=== PATIENT | female | born 1970 | race Caucasian/White ===

== ENCOUNTER 2021-11-10 21:51 | Inpatient (IN) | payer MEDICARE, MEDICAID, SELFPAY ==
[2021-11-10 22:45] VITALS: BMI 27.8
[2021-11-10 22:52] VITALS: BP 102/58; PULSE 76; TEMP 36.5; O2SAT 96
[2021-11-11] MEDS: traZODone HCL 50 MG TABLET PO ×2 (02:41→20:04)
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
[2021-11-11 09:45] VITALS: BP 115/60; PULSE 74; RESP 16; TEMP 36.4; O2SAT 99
[2021-11-11] MEDS: Gabapentin 400 MG CAPSULE PO ×3 (09:55→20:06)
[2021-11-11] MEDS: Dextroamphetamine/Amphetamine XR 10 MG CAP.ER.24H 20 MG PO (09:55)
[2021-11-11] MEDS: clonazePAM 1 MG TABLET PO ×3 (09:55→20:04)
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
[2021-11-11] MEDS: Loperamide HCl 2 MG CAPSULE PO (19:36)
[2021-11-11 19:55] VITALS: BP 131/78; PULSE 84; RESP 18; TEMP 36.7; O2SAT 100
[2021-11-11] MEDS: hydrOXYzine HCL 25 MG TABLET PO (20:20)
[2021-11-12 06:00] VITALS: BP 118/71; PULSE 80; RESP 16; TEMP 36.9; O2SAT 97
[2021-11-12 07:00] VITALS: BMI 27.8
[2021-11-12] MEDS: Gabapentin 400 MG CAPSULE PO ×3 (10:33→20:12)
[2021-11-12] MEDS: clonazePAM 1 MG TABLET PO ×2 (10:34→20:12)
[2021-11-12] MEDS: buPROPion HCl XL 150 MG TAB.ER.24H PO (10:34)
[2021-11-12] MEDS: Escitalopram Oxalate 5 MG TABLET PO (10:34)
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
[2021-11-12 20:12] VITALS: BP 133/62; PULSE 118; RESP 20; TEMP 36.3; O2SAT 97
[2021-11-12] MEDS: hydrOXYzine HCL 25 MG TABLET PO (20:12)
[2021-11-12] MEDS: traZODone HCL 50 MG TABLET PO ×2 (20:12)
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
[2021-11-13 10:22] VITALS: BP 151/93; PULSE 78; RESP 18; TEMP 36.3; O2SAT 98
[2021-11-13] MEDS: clonazePAM 1 MG TABLET PO (10:24)
[2021-11-13] MEDS: Escitalopram Oxalate 5 MG TABLET PO (10:25)
[2021-11-13] MEDS: buPROPion HCl XL 300 MG TAB.ER.24H PO (10:25)
[2021-11-13] MEDS: Gabapentin 400 MG CAPSULE PO (10:25)
--- NOTE | 2021-11-13 11:17 | PC.NURSE ---
Patient is pleasant and cooperative upon approach. Patient denies SI/HI/AH/VH. Patient is in agreement with discharge instructions and verbalizes an understanding. Patient reports being ready for discharge. Patient denies physical complaints at this time.
== END 2021-11-13 11:14 | disposition home or self-care (01) | DRG 885 ==
PROVIDERS: Admitting Provider Psychiatry & Neurology Psychiatry; Visit Provider Psychiatry & Neurology Psychiatry
DX: F33.9 Major depressive disorder, recurrent, unspecified (principal); F13.10 Sedative, hypnotic or anxiolytic abuse, uncomplicated; F10.10 Alcohol abuse, uncomplicated; F17.210 Nicotine dependence, cigarettes, uncomplicated; Z71.6 Tobacco abuse counseling; Z79.899 Other long term (current) drug therapy